=== PATIENT | male | born 1995 | race Caucasian/White ===

== ENCOUNTER 2018-05-27 21:57 | Emergency (ER) | payer OTHER, SELFPAY ==
[~2018-05-27] VITALS: Ht 195.6 cm; Wt 84.3 kg
[2018-05-27 22:04] VITALS: BP 129/70
[2018-05-27] MEDS ORDERED: LIDOCAINE-MPF 1%, 5ML ONE (22:13)
[2018-05-27] MEDS ORDERED: LIDOCAINE 1%, 10ML INFIL ONE (22:30)
[2018-05-27] MEDS ORDERED: BACITRACIN ZINC OINT 500U/GM, 0.9 GM ONE (22:39)
== END 2018-05-27 22:58 | disposition home or self-care (01) ==
LOC: ED 22:50
DX: S61.212A Laceration without foreign body of right middle finger without damage to nail, initial encounter (principal); W26.0XXA Contact with knife, initial encounter; Y93.89 Activity, other specified; Y92.009 Unspecified place in unspecified non-institutional (private) residence as the place of occurrence of the external cause; Y99.8 Other external cause status
CPT/HCPCS: 12041; 99284